=== PATIENT | female | born 1965 | race Caucasian/White ===

== ENCOUNTER 2022-08-13 19:00 | Emergency (ER) | payer BC, SELFPAY ==
[2022-08-13 19:05] VITALS: BP 183/116; PULSE 99; RESP 20; TEMP 36.6; O2SAT 99; BMI 43.0; BMI 6186.4
--- NOTE | 2022-08-13 19:05 | XR_ITS ---
PROCEDURE INFORMATION: Exam: XR Chest Exam date and time: 08/13/2022 7:07 PM Age: 57 years old Clinical indication: Pain; Chest pressure; Additional info: Chest pain TECHNIQUE: Imaging protocol: Radiologic exam of the chest. Views: 2 views. COMPARISON: No relevant prior studies available. FINDINGS: Lungs: Unremarkable. No consolidation. Pleural spaces: Unremarkable. No pleural effusion. No pneumothorax. Heart/Mediastinum: Unremarkable. No cardiomegaly. Bones/joints: Unremarkable. IMPRESSION: No acute findings.
--- NOTE | 2022-08-13 19:08 | CT_ITS ---
PROCEDURE INFORMATION: Exam: CTA Chest With Contrast Exam date and time: 08/13/2022 7:31 PM Age: 57 years old Clinical indication: Pain; Chest pressure; Additional info: Chest pain TECHNIQUE: Imaging protocol: Computed tomographic angiography of the chest with contrast. 3D rendering (Not supervised by radiologist): MIP and/or 3D reconstructed images were created by the technologist. Radiation optimization: All CT scans at this facility use at least one of these dose optimization techniques: automated exposure control; mA and/or kV adjustment per patient size (includes targeted exams where dose is matched to clinical indication); or iterative reconstruction. Contrast material: ISOVUE; Contrast volume: 100 ml; Contrast route: INTRAVENOUS (IV); REPORTING DATA: Count of CT and Cardiac NM exams in prior 12 months: This patient has received 0 known CTs and 0 known cardiac nuclear medicine studies in the 12 months prior to the current study. COMPARISON: CR XR CHEST 2V 08/13/2022 7:07 PM FINDINGS: Pulmonary arteries: Normal. No pulmonary emboli. Aorta: There is fusiform dilation of the ascending aorta measuring 3.5 cm in greatest diameter. No evidence of aortic dissection. Lungs: Unremarkable. No consolidation. No masses. Pleural spaces: Unremarkable. No pneumothorax. No pleural effusion. Heart: Unremarkable. No cardiomegaly. No pericardial effusion. Lymph nodes: Unremarkable. No enlarged lymph nodes. Bones/joints: Mild degenerative changes noted in the thoracic spine. Soft tissues: Unremarkable. IMPRESSION: Mild aneurysmal dilation of the ascending aorta. No evidence of aortic dissection or other acute abnormality in the chest
--- NOTE | 2022-08-13 19:09 | HMH.EDGENADL ---
Discharge Plan Disposition Patient Disposition: Home, Self-Care Condition: Good Chief Complaint: Chest Pain Prescriptions Prescriptions: No Action cyclobenzaprine 5 mg tablet 5 mg PO TID PRN Referrals Follow up/Referrals: Provider,MD Michael [Primary Care Provider] - See instructions Clinical Impressions Clinical Impression: Chest pain Instructions Patient Instructions: DI for Chest Pain Print Language Print Language: Uzbek Discharge ED Provider: Robert Payne General Adult HPI General Chief complaint: Chest Pain Stated complaint: chest pain Time Seen by Provider: 08/13/22 20:05 History of Present Illness HPI narrative: Patient presents to the emergency department chest pain which is mostly left-sided and extends into her back. She states is mainly under her left breast. She describes it radiating between her shoulder blades. She states that it started a couple hours prior to arrival. States she has never had any pain like this before. Denies any abdominal pain. States she is status post cholecystectomy many years ago. Describes some associated shortness of breath. There is mild worsening symptoms with deep inspiration. Describes nausea. States that her pain intermittently worsens in intensity. Related Data Home Medications Medication Instructions Recorded Confirmed cyclobenzaprine 5 mg tablet 5 mg PO TID PRN 05/25/22 05/25/22 Allergies Allergy/AdvReac Type Severity Reaction Status Date / Time No Known Allergies Allergy Verified 05/25/22 13:24 [facility] Disclaimer: The information contained in this section may have been updated after the patient was seen, as this information can be updated by other users. Surgical History H/O: hysterectomy History of bilateral knee replacement Social History Smoking Status: Never smoker alcohol intake: never current occupational status: employed Travel in the last 8 weeks: None ROS Obtained: Yes All systems reviewed & no additional complaints except as documented Cardiovascular Cardiovascular: Reports chest pain Respiratory Respiratory: Reports shortness of breath Physical Exam General General appearance: alert and in no apparent distress Head Head exam: atraumatic Eye Eye exam: Present normal appearance, PERRL and EOMI Chest Chest inspection: Present other (Somewhat reproducible chest pain in the left anterior chest extending into the back) Respiratory Respiratory exam: Present normal lung sounds bilaterally Cardiovascular Cardiovascular exam: Present regular rate, normal rhythm and normal heart sounds Abdominal Exam Abdominal exam: Present soft and normal bowel sounds Extremities Exam Extremities exam: Present normal inspection Neurological Exam Neurological exam: Present alert, oriented X3 and CN II-XII intact Psychiatric Psychiatric exam: Present normal affect and normal mood Medical Decision Making Amnoj Inquiry Pt receiving controlled substance: No Vital Signs: 08/13/22 19:05 08/13/22 19:13 Temperature 97.8 F Temperature Source Oral Pulse Rate 99 H Pulse Rate [Left Radial] 99 H Respiratory Rate 20 Blood Pressure [Right Arm] 183/116 H Blood Pressure Mean [Right Arm] 138 02 Sat by Pulse Oximetry 99 Lab Data Lab Results 08/13/22 19:00: WBC 11.8 H, RBC 5.08, Hgb 15.1, Hct 45.9, MCV 90.3, MCH 29.8, MCHC 33.0, RDW 13.1, Plt Count 352, MPV 9.2, Neut % (Auto) 45.7, Lymph % (Auto) 45.6, [place] % (Auto) 5.5, Eos % (Auto) 1.6, Baso % (Auto) 1.6, Neut # (Auto) 5.4, Lymph # (Auto) 5.4 H, [place] # (Auto) 0.7, Eos # (Auto) 0.2, Baso # (Auto) 0.2 08/13/22 19:00: Sodium 142, Potassium 3.6, Chloride 105, Carbon Dioxide 28, Anion Gap 12.6, BUN 14, Creatinine 0.80, Estimated Creat Clear 55, Estimated GFR 74, Est GFR ( Amer) 89, Glucose 80, Calcium 8.7, Total Bilirubin 0.5, AST 39 H, ALT 38
[2022-08-13 19:12] LABS: Basophils # 0.2 K/mm3 (0-0.2); Basophils % 1.6 % (0.1-2.0); Eosinophils # 0.2 K/mm3 (0.0-0.4); Eosinophils % 1.6 % (0.1-12.0); Hematocrit 45.9 % (37.0-47.0); Hemoglobin 15.1 g/dL (12.2-16.2); Lymphocytes # 5.4 K/mm3 (0.7-4.5); Lymphocytes % 45.6 % (10-50); Mean Corpuscular Hemoglobin 29.8 pg (27.0-31.2); Mean Corpuscular Volume 90.3 fl (81-99); Mean Platelet Volume 9.2 fl (7.4-10.4); Monocytes # 0.7 K/mm3 (0.1-1.0); Monocytes % 5.5 % (1.7-9.3); Neutrophils # 5.4 K/mm3 (1.8-7.8); Neutrophils % 45.7 % (37.0-80.0); Platelet Count 352 K/mm3 (142-424); Red Blood Count 5.08 M/mm3 (4.20-5.40); Red Cell Distribution Width 13.1 % (11.5-17.5); White Blood Count 11.8 K/mm3 (4.8-10.8)
[2022-08-13 19:13] VITALS: PULSE 99
[2022-08-13 19:14] LABS: Chloride 105 mmol/L (98-107); Potassium 3.6 mmoL/L (3.5-5.1); Sodium 142 mmol/L (136-145)
[2022-08-13 19:17] LABS: Alanine Aminotransferase 38 U/L (12-78); Albumin Level 4.3 g/dl (3.5-5.0); Albumin/Globulin Ratio 1.6 (1.1-1.8); Alkaline Phosphatase 101 U/L (38-126); Anion Gap 12.6 mEq/L (5-15); Aspartate Amino Transferase 39 U/L (14-36); Bilirubin,Total 0.5 mg/dl (0.2-1.3); Blood Urea Nitrogen 14 mg/dl (7-17); Calcium 8.7 mg/dl (8.4-10.2); Carbon Dioxide 28 mmol/L (22.0-30.0); Creatinine Clearance Estimated 55 mL/min (50-200); Estimated Glomerular Filt Rate 74 ml/min (>60); GFR (African American) 89 ML/MIN (>60); Globulin 2.7 g/dL (1.3-3.2); Glucose 80 mg/dl (74-100)
[2022-08-13 19:30] LABS: Troponin I < 0.01 ng/ml (0.00-0.034)
[2022-08-13 20:06] VITALS: BP 151/78; PULSE 64; RESP 18; TEMP 36.6; O2SAT 99
--- NOTE | 2022-08-14 19:00 | ECG_ITS ---
APPROVED REPORT Exam: Resting ECG HR:83 bpm ECG Measurements Heart Rate 83 AXES OR 187 P 74 QRSd 86 QRS 63 QT 328 T 73 QTc 368 Conclusion SINUS RHYTHM NORMAL ECG UNCONFIRMED REPORT Electronically signed by : Kartik Burgess MD 08/14/2022 07:04:22
== END 2022-08-13 20:20 | disposition home or self-care (01) ==
PROVIDERS: Emergency Provider Emergency Medicine
DX: R07.89 Other chest pain (principal); Z96.653 Presence of artificial knee joint, bilateral; Z90.710 Acquired absence of both cervix and uterus
CPT/HCPCS: 71046; 71275; 80053; 84484; 85025; 93005; 96374; 96375; 99285; Q9967

== ENCOUNTER 2022-09-11 16:30 | Emergency (ER) | payer BC, SELFPAY ==
[2022-09-11 16:36] VITALS: BP 176/92; PULSE 62; O2SAT 98
[2022-09-11 16:42] VITALS: BP 176/92; PULSE 74; RESP 20; TEMP 36.7; O2SAT 98; BMI 43.0
--- NOTE | 2022-09-11 16:43 | CT_ITS ---
PROCEDURE INFORMATION: Exam: CT Head Without Contrast Exam date and time: 09/11/2022 5:26 PM Age: 57 years old Clinical indication: Pain; Headache TECHNIQUE: Imaging protocol: Computed tomography of the head without contrast. Radiation optimization: All CT scans at this facility use at least one of these dose optimization techniques: automated exposure control; mA and/or kV adjustment per patient size (includes targeted exams where dose is matched to clinical indication); or iterative reconstruction. REPORTING DATA: Count of CT and Cardiac NM exams in prior 12 months: This patient has received 3 known CTs and 0 known cardiac nuclear medicine studies in the 12 months prior to the current study. COMPARISON: No relevant prior studies available. FINDINGS: Brain: No evidence of acute parenchymal hemorrhage, extra-axial collection or local regional mass effect. Cerebral ventricles: The ventricles, sulci and cisterns are normal in size and configuration. No hydrocephalus or midline structure shift Pituitary gland and sella: Sellar/parasellar structures, orbits and craniocervical junction are unremarkable Paranasal sinuses: Mucous retention cyst versus polyp in the left maxillary sinus. Mastoid air cells: Visualized mastoid air cells are well aerated. Bones/joints: No calvarial fracture Soft tissues: Unremarkable. IMPRESSION: No acute intracranial abnormality. No calvarial fracture.
--- NOTE | 2022-09-11 16:43 | CT_ITS ---
PROCEDURE INFORMATION: Exam: CTA Neck With Contrast Exam date and time: 09/11/2022 5:29 PM Age: 57 years old Clinical indication: Dizziness and giddiness and headache; Additional info: Dizziness; Assess posterior circulation TECHNIQUE: Imaging protocol: Computed tomographic angiography of the neck with contrast. 3D rendering (Not supervised by radiologist): MIP and/or 3D reconstructed images were created by the technologist. Radiation optimization: All CT scans at this facility use at least one of these dose optimization techniques: automated exposure control; mA and/or kV adjustment per patient size (includes targeted exams where dose is matched to clinical indication); or iterative reconstruction. Contrast material: ISOVUE; Contrast volume: 100 ml; Contrast route: INTRAVENOUS (IV); REPORTING DATA: Count of CT and Cardiac NM exams in prior 12 months: This patient has received 3 known CTs and 0 known cardiac nuclear medicine studies in the 12 months prior to the current study. COMPARISON: CT ANGIO CHEST 08/13/2022 7:31 PM FINDINGS: Right common carotid artery: The right common carotid artery is widely patent. No stenosis. Right internal carotid artery: The right internal carotid artery is patent. No stenosis by NASCET criteria. No evidence of dissection. Right external carotid artery: No occlusion or stenosis of the origin. Left common carotid artery: The left common carotid artery is widely patent. No stenosis. Left internal carotid artery: The left internal carotid artery is patent. No stenosis by NASCET criteria. No evidence of dissection. Left external carotid artery: No occlusion or stenosis of the origin. Right vertebral artery: Right vertebral artery is unremarkable without flow-limiting stenosis. Left vertebral artery: Left vertebral artery is unremarkable without flow-limiting stenosis. Left subclavian artery: No flow-limiting stenosis in the proximal left subclavian artery. No flow-limiting stenosis in the proximal left subclavian artery. Veins: Prominent veins obscure the V3 segments of vertebral arteries bilaterally. Soft tissues: Normal. No significant soft tissue swelling. Bones/joints: No acute fracture. IMPRESSION: No evidence of occlusion or dissection along the major cervical arteries. REFERENCES: NASCET CRITERIA. The degree of stenosis in the cervical segment of the internal carotid artery is based on NASCET criteria. Normal is no stenosis. Mild is less than 50% stenosis. Moderate is 50-69% stenosis. Severe is 70% to 99% stenosis. Total occlusion is no detectable patent lumen.
--- NOTE | 2022-09-11 16:43 | CT_ITS ---
PROCEDURE INFORMATION: Exam: CTA Head With Contrast, Arteriography Exam date and time: 09/11/2022 5:29 PM Age: 57 years old Clinical indication: Dizziness and giddiness and headache; Additional info: Dizziness; Assess posterior circulation TECHNIQUE: Imaging protocol: Computed tomographic angiography of the head with contrast. Exam focused on the arteries. 3D rendering (Not supervised by radiologist): MIP and/or 3D reconstructed images were created by the technologist. Radiation optimization: All CT scans at this facility use at least one of these dose optimization techniques: automated exposure control; mA and/or kV adjustment per patient size (includes targeted exams where dose is matched to clinical indication); or iterative reconstruction. Contrast material: ISOVUE; Contrast volume: 100 ml; Contrast route: INTRAVENOUS (IV); REPORTING DATA: Count of CT and Cardiac NM exams in prior 12 months: This patient has received 3 known CTs and 0 known cardiac nuclear medicine studies in the 12 months prior to the current study. COMPARISON: CT HEAD/BRAIN WO CON 09/11/2022 5:26 PM FINDINGS: ANTERIOR CIRCULATION: Right internal carotid artery: Intracranial segment is patent with no significant stenosis. No aneurysm. Right middle cerebral artery: Right middle cerebral artery is patent. No significant stenosis. No aneurysm. Right anterior cerebral artery: Right anterior cerebral artery is patent. No significant stenosis. No aneurysm. Left internal carotid artery: Intracranial segment is patent with no significant stenosis. No aneurysm. Left middle cerebral artery: Left middle cerebral artery is patent. No significant stenosis. No aneurysm. Left anterior cerebral artery: Left anterior cerebral artery is patent. No significant stenosis. No aneurysm. POSTERIOR CIRCULATION: Right vertebral artery: Right vertebral artery is unremarkable without flow-limiting stenosis. Left vertebral artery: Left vertebral artery is unremarkable without flow-limiting stenosis. Basilar artery: Basilar artery is patent. Right posterior cerebral artery: Multifocal narrowings along P1 P2 segment of right posterior cerebral artery. Left posterior cerebral artery: Multifocal narrowings along P1 P2 segment of left posterior cerebral artery. Brain: No definite mass, mass effect, or midline shift. Cerebral ventricles: No ventriculomegaly. Bones/joints: Unremarkable. No acute fracture. Soft tissues: Unremarkable. IMPRESSION: Multifocal narrowings along the P1 P2 segment of posterior cerebral arteries bilaterally
[2022-09-11 16:57] LABS: Chloride 107 mmol/L (98-107); Potassium 4.1 mmoL/L (3.5-5.1); Sodium 141 mmol/L (136-145)
[2022-09-11 17:00] LABS: Alanine Aminotransferase 36 U/L (12-78); Albumin Level 4.5 g/dl (3.5-5.0); Albumin/Globulin Ratio 1.8 (1.1-1.8); Alkaline Phosphatase 101 U/L (38-126); Anion Gap 10.1 mEq/L (5-15); Aspartate Amino Transferase 35 U/L (14-36); Bilirubin,Total 0.8 mg/dl (0.2-1.3); Blood Urea Nitrogen 12 mg/dl (7-17); Carbon Dioxide 28 mmol/L (22.0-30.0); Creatinine Clearance Estimated 49 mL/min (50-200); Estimated Glomerular Filt Rate 64 ml/min (>60); GFR (African American) 78 ML/MIN (>60); Globulin 2.5 g/dL (1.3-3.2)
[2022-09-11 17:01] VITALS: BP 165/94; PULSE 64; O2SAT 96
[2022-09-11 17:01] LABS: Calcium 8.9 mg/dl (8.4-10.2); Glucose 101 mg/dl (74-100)
[2022-09-11 17:09] LABS: Basophils # 0.2 K/mm3 (0-0.2); Basophils % 2.6 % (0.1-2.0); Eosinophils # 0.1 K/mm3 (0.0-0.4); Eosinophils % 1.3 % (0.1-12.0); Hematocrit 47.2 % (37.0-47.0); Lymphocytes # 4.3 K/mm3 (0.7-4.5); Lymphocytes % 45.6 % (10-50); Mean Corpuscular HGB Conc 31.8 g/dL (31.8-35.4); Mean Corpuscular Hemoglobin 29.7 pg (27.0-31.2); Mean Corpuscular Volume 93.6 fl (81-99); Mean Platelet Volume 9.1 fl (7.4-10.4); Monocytes # 0.6 K/mm3 (0.1-1.0); Monocytes % 6.2 % (1.7-9.3); Neutrophils # 4.2 K/mm3 (1.8-7.8); Neutrophils % 44.4 % (37.0-80.0); Platelet Count 355 K/mm3 (142-424); Red Blood Count 5.05 M/mm3 (4.20-5.40); Red Cell Distribution Width 13.1 % (11.5-17.5); White Blood Count 9.4 K/mm3 (4.8-10.8)
[2022-09-11 17:11] VITALS: BP 153/89; PULSE 96; O2SAT 96
--- NOTE | 2022-09-11 17:14 | HMH.EDGENADL ---
Discharge Plan Disposition Patient Disposition: Home, Self-Care Prescriptions Prescriptions: No Action No Known Home Medications Referrals Follow up/Referrals: Provider,MD Michael [Primary Care Provider] - See instructions Activity Restrictions/Add. Instructions Additional Instructions/Restrictions: I recommend that you call your eye doctor in the morning to get an appointment for evaluation for possible optic neuritis. They will likely refer you to a neurologist if they find any abnormal findings. Please return with any new or worsening symptoms. Clinical Impressions Clinical Impression: Ocular headache Instructions Patient Instructions: DI for Migraine Discharge ED Provider: Jad Jenkins General Adult HPI General Chief complaint: Headache Stated complaint: Headache for 3 days now Time Seen by Provider: 09/11/22 16:35 Mode of Arrival: Ambulatory Source of Information: Patient Limitations: No Limitations Description of Symptoms (Recalled from ER Triage Doc. by RN): pt to ed c/o right sided headache x3 days associated with dizziness. pt reports she did sustain a fall x1 month ago and hit her head. pt denies LOC. pt states a hx of migranes. History of Present Illness HPI narrative: Patient is a 57-year-old female past medical history of migraines who presents with concern for headache. She says that she has not had a headache in years and that this feels different than her normal headaches. She says that it is substantially worse compared to when she would normally get them. She says that she normally does not get visual changes but says that she is having quite a bit of pain behind her right eye and around her eye. She denies any numbness or tingling into her extremities. She says that she has been a little bit dizzy and did actually recently have a fall. No loss consciousness. No weakness in her extremities. Related Data Home Medications Medication Instructions Recorded Confirmed No Known Home Medications 09/11/22 09/11/22 Allergies Allergy/AdvReac Type Severity Reaction Status Date / Time No Known Allergies Allergy Verified 05/25/22 13:24 [facility] Disclaimer: The information contained in this section may have been updated after the patient was seen, as this information can be updated by other users. Surgical History H/O: hysterectomy History of bilateral knee replacement Social History Smoking Status: Never smoker alcohol intake: never current occupational status: employed Travel in the last 8 weeks: None ROS Obtained: Yes All systems reviewed & no additional complaints except as documented Physical Exam General General appearance: alert and in no apparent distress Head Head exam: atraumatic, normocephalic, normal inspection and other (No tenderness to palpation over the right temporal artery) Eye Eye exam: Present normal appearance and PERRL ENT ENT exam: Present normal exam, mucous membranes moist and normal external ear exam Neck Neck exam: Present normal inspection and trachea midline Chest Chest inspection: Present normal inspection and symmetric chest wall rise Respiratory Respiratory exam: Present normal lung sounds bilaterally; Absent respiratory distress Cardiovascular Cardiovascular exam: Present regular rate and normal rhythm Abdominal Exam Abdominal exam: Present soft; Absent distention, tenderness or guarding Extremities Exam Extremities exam: Present normal inspection; Absent edema Neurological Exam Neurological exam: Present alert and oriented X3 Psychiatric Psychiatric exam: Present normal affect and normal mood Skin Skin exam: Present warm, dry, intact and normal color Medical Decision Making Medical Records Medical records reviewed: Yes I reviewed the patient's medical records. Manoj Inquiry Pt receiving controlled orozco
--- NOTE | 2022-09-11 17:17 | PC.NURSE ---
pt to ct at this time
[2022-09-11 17:19] LABS: C-Reactive Protein 2.6 mg/L (0-4)
--- NOTE | 2022-09-11 17:33 | PC.NURSE ---
pt arrived back to room from radiology
[2022-09-11 17:50] LABS: Erythrocyte Sedimentation Rate 21 mm/hr (0-30)
[2022-09-11 18:01] VITALS: BP 140/90; PULSE 69; O2SAT 96
[2022-09-11 18:53] VITALS: BP 148/80; PULSE 83; RESP 20; TEMP 36.7; O2SAT 96
== END 2022-09-11 18:55 | disposition home or self-care (01) ==
PROVIDERS: Emergency Provider Student in an Organized Health Care Education/Training Program
DX: G43.909 Migraine, unspecified, not intractable, without status migrainosus (principal); R42 Dizziness and giddiness
CPT/HCPCS: 70450; 70496; 70498; 80053; 85025; 85651; 86140; 96360; 96374; 96375; 99284; 99285; Q9967